=== PATIENT | male | born 1955 | race Caucasian/White ===

== ENCOUNTER 2018-07-02 16:19 | Emergency (ER) | payer OTHER, MEDICAID ==
[~2018-07-02] VITALS: Ht 154.9 cm; Wt 57.6 kg
[2018-07-02 16:32] VITALS: BP 134/71
--- NOTE | 2018-07-02 17:06 | NUR ---
PT AMBULATES TO BED 3
--- NOTE | 2018-07-02 17:19 | NUR ---
PT BIB CAREGIVER TO THE ED WITH THE CHIEF C/O CONGESTION AND COUGH XTODAY. WHITE PHLEGM. NO BLOOD IN PHLEGM. PER MANAGER CASE MANAGEMENT PT RPEORTED SOB AND DIFFICULTY BREATHING THIS MORNING. BREATHING NORMALLY AT THIS TIME. SATURATING 95% IN ROOM AIR. LUNGS WHEEZING. AFEBRILE AT THIS TIME. DENIES ANY RECENT FEVER. DENIES ANY N/V/D. STATES PAIN 0/10.
--- NOTE | 2018-07-02 17:59 | NUR ---
FLU SWAB TAKE TO THE LAB.
[2018-07-02] MEDS ORDERED: OSELTAMIVIR PHOSPHATE 75 MG CAP PO ONE (18:30)
[2018-07-02 19:15] VITALS: BP 168/86
--- NOTE | 2018-07-02 19:17 | NUR ---
Patient discharged with v/s stable. Written and verbal after care instructions given and explained to the patient and care provider. Patient alert, oriented and verbalized understanding of instructions. Wheel Chair Assisted with by caregiver. All questions addressed prior to discharge. ID band removed. Patient advised to follow up with PMD. Rx of CODEINE PHOSPHATE, TAMIFLU given. Patient educated on indication of medication including possible reaction and side effects. Opportunity to ask questions provided and answered.
== END 2018-07-02 19:17 | disposition home or self-care (01) ==
LOC: MED 16:19
DX: J10.1 Influenza due to other identified influenza virus with other respiratory manifestations (principal); J45.909 Unspecified asthma, uncomplicated; I10 Essential (primary) hypertension; K21.9 Gastro-esophageal reflux disease without esophagitis; E78.5 Hyperlipidemia, unspecified; N40.0 Benign prostatic hyperplasia without lower urinary tract symptoms
CPT/HCPCS: 71045; 87804; 99284; Q0092

== ENCOUNTER 2018-12-17 19:13 | Inpatient (IN) | payer OTHER, MEDICAID ==
[~2018-12-17] VITALS: Ht 154.9 cm; Wt 54.0 kg
--- NOTE | 2018-12-17 02:00 | NUR ---
PT WAS TURNED AND REPOSITIONED, 22G IN R HAND FELL OUT. NEW IV SITE ON RIGHT F/A 24G RUNNING N/S AT 100MLS/HR.
[2018-12-17 20:00] VITALS: BP 123/70
--- NOTE | 2018-12-17 20:35 | NUR ---
TO BED # 03 VIA WHEELCHAIR
--- NOTE | 2018-12-17 20:47 | NUR ---
63 Y/O MALE PRESENTS TO ED, C/O OF RECTAL BLEEDING. BUSINESS PROJECT MANAGER AT BEDSIDE STATES, BLEEDING STARTED AT 6PM TODAY. UNABLE TO CONFIRM COLOR AND AMOUNT OF BLOOD. BUSINESS PROJECT MANAGER STATES PT HAS BEEN TAKING A LAXATIVE FOR THE PAST 6 DAYS AND HAS BEEN HAVING DIARRHEA SINCE THEN. PT VSS. ERMD AWARE. WILL CONTINUE TO MONITOR.
[2018-12-17] MEDS ORDERED: NACL 0.9% 1,000 ML IV SCH (21:23)
[2018-12-17 21:52] LABS: BASOPHILS % (AUTO) 0.3 % (0.0-2.0); EOSINOPHILS # (AUTO) 0.6 K/uL (0-0.4); EOSINOPHILS % (AUTO) 6.7 % (0.0-4.0); HEMATOCRIT 41.8 % (36-52); HEMOGLOBIN 13.7 g/dL (12.0-18.0); LYMPHOCYTES # (AUTO) 1.6 K/uL (2.0-11.5); LYMPHOCYTES % (AUTO) 19.1 % (20.5-51.1); MEAN CORPUSCULAR HEMOGLOBIN 28 pg (27-31); MEAN CORPUSCULAR HGB CONC 33 g/dL (33-37); MEAN CORPUSCULAR VOLUME 86.1 fL (80-94); MONOCYTES # (AUTO) 0.6 K/uL (0.8-1.0); MONOCYTES % (AUTO) 7.2 % (1.7-9.3); NEUTROPHILS # (AUTO) 5.8 K/uL (1.8-7.7); NEUTROPHILS % (AUTO) 66.7 % (42.2-75.2); PLATELET COUNT (AUTO) 175 K/uL (140-450); RED BLOOD CELL COUNT(AUTO) 4.85 MIL/uL (4.20-6.10); WHITE BLOOD COUNT (AUTO) 8.6 K/uL (4.8-10.8)
[2018-12-17 22:07] LABS: PROTHROMBIN TIME 10.4 secs (10.8-13.4)
[2018-12-17 22:14] LABS: ANION GAP 11.9 (8-16); CARBON DIOXIDE 30.6 mmol/L (21-32); CREATININE 0.7 mg/dL (0.7-1.3); POTASSIUM 4.5 mmol/L (3.5-5.1)
[2018-12-17 22:21] LABS: ALBUMIN 3.5 g/dL (3.4-5.0); TOTAL BILIRUBIN 0.3 mg/dL (0.0-1.0)
--- NOTE | 2018-12-17 22:28 | NUR ---
Dr. Burnette examining patient.
[2018-12-17] MEDS ORDERED: HYDROcodone/APAP 7.5/325 MG 1 TAB PO PRN (22:45)
[2018-12-17] MEDS ORDERED: ONDANSETRON 4 MG/2 ML VIAL IM/IVP PRN (22:45)
[2018-12-17] MEDS ORDERED: ACETAMINOPHEN 325 MG TAB PO PRN (22:45)
[2018-12-17] MEDS ORDERED: DOCUSATE SODIUM 100 MG GELCAP PO PRN (22:45)
--- NOTE | 2018-12-17 23:45 | NUR ---
PT ADMITTED TO [facility], RM 124B. TRANSFERRED PT VIA [facility]. REPORT GIVEN TO JUAN PABLO SMITH. PT CARE TRASNFERRED TO RECEIVING RN.
[2018-12-18] VITALS: BP 116/57
--- NOTE | 2018-12-18 | NUR ---
PT ARRIVE VIA GURNEY AND TRANSFERRED TO 124 BED A. PT IS AOX3 , SKIN INTACT. PT HAS BILATERAL CONTRACTIONS AND IS A PARAPLEGIC. PT IS NPO FOR NOW BUT DRINKS THICKEN FLUIDS. PT ALSO HAS HX SLEEP APNEA AND ASTHMA. REPORT RECEIVED FORMER STAFF AT BEDSIDE. V/S FOLLOWS T 97.5 P 80 R 18 B/P 116/57 -02 945 WITH 2LITERS VIA N/C.
[2018-12-18] MEDS ORDERED: DEXTROSE 50% 50 ML SYR IVP PRN (00:10)
[2018-12-18] MEDS ORDERED: PHEN1SUP5 RC (00:31)
[2018-12-18] MEDS ORDERED: ASPI-1718 PO (00:32)
[2018-12-18] MEDS ORDERED: RISP0.5T3 PO (00:32)
[2018-12-18] MEDS ORDERED: BENZ-248 PO (00:32)
[2018-12-18] MEDS ORDERED: FERR325E14 PO (00:32)
[2018-12-18] MEDS ORDERED: [UNRECOGNIZED DRUG - CODE] NS (00:32)
[2018-12-18] MEDS ORDERED: FLUT1BLS11 IH (00:32)
[2018-12-18] MEDS ORDERED: PUL.5N NEB (00:32)
[2018-12-18] MEDS ORDERED: LACT10SO1 PO (00:32)
[2018-12-18] MEDS ORDERED: [UNRECOGNIZED DRUG - CODE] PO (00:32)
[2018-12-18] MEDS ORDERED: FURO20TA8 PO (00:32)
[2018-12-18] MEDS ORDERED: METF500T PO (00:32)
[2018-12-18] MEDS ORDERED: CARV3.122 PO (00:32)
[2018-12-18] MEDS ORDERED: DONE10TA10 PO (00:32)
[2018-12-18] MEDS ORDERED: TAMS0.4C96 PO (00:32)
[2018-12-18] MEDS ORDERED: GABA300C PO (00:32)
[2018-12-18] MEDS ORDERED: LISI2.5T12 PO (00:32)
[2018-12-18] MEDS ORDERED: ATOR20TA PO (00:32)
[2018-12-18] MEDS ORDERED: RIVA20TA PO (00:32)
[2018-12-18] MEDS ORDERED: PANT40EC PO (00:32)
[2018-12-18] MEDS ORDERED: MODA100T13 PO (00:32)
[2018-12-18 00:34] LABS: AMYLASE 44 U/L (25-115); CHOL/HDL RATIO 5.3 (1-4.5); HDL CHOLESTEROL 33 mg/dL (40-60); LDL (CALC) 102 mg/dL (60-100); LIPASE 181 U/L (73-393); MAGNESIUM 2.3 mg/dL (1.8-2.4); PHOSPHORUS 3.3 mg/dL (2.5-4.9); THYROID STIMULATING HORMONE 3.97 uIU/mL (0.34-3.74); TRIGLYCERIDES 205 mg/dL (30-150)
--- NOTE | 2018-12-18 01:15 | NUR ---
PETTY FROM LAB CALLED LACTIC ACID AT 4.2 RESIDENT MAGDALENA MADE AWARE.
[2018-12-18] MEDS ORDERED: cefTRIAXone 1,000 MG VIAL ONE (02:00)
[2018-12-18] MEDS: MORPHINE SULFATE 2 MG/ML SYR IVP PRN (02:12)
--- NOTE | 2018-12-18 02:15 | NUR ---
PT C/O SEVERE BACK PAIN, PT WAS REPOSITIONED AND GIVEN MORPHINE IVP.
[2018-12-18] MEDS ORDERED: ALBUTEROL SULFATE/IPRATROPIU 3 ML SOL IH PRN (02:20)
[2018-12-18] MEDS: DEXT 5% / NACL 0.45% 1,000 ML IV SCH ×2 (02:27→12:10)
--- NOTE | 2018-12-18 03:15 | NUR ---
LAST LACTIC ACID RETEST IS 3.5 TRENDING DOWN.
[2018-12-18 04:00] VITALS: BP 100/46
--- NOTE | 2018-12-18 05:33 | NUR ---
PT HAS A LARGE BLOOD LOOSE STOOL WITH RODRIGUE BLOOD IN STOOL STOOL COLECTED FOR C DIFF AND BLOOD OCCULT AND SENT TO LAB.
--- NOTE | 2018-12-18 05:50 | NUR ---
PT IN BED, FLAGYL HUNG AND IS RUNNING ORDERED. FINGERSTICK IS 124, NO COVERAGE NEEDED. ALL FALLS PRECAUTIONS IN PLACE.
[2018-12-18] MEDS: metroNIDAZOLE 500 MG/NS PREMIX 100 ML IV SCH ×2 (06:19→12:36)
[2018-12-18] MEDS: BLOOD GLUCOSE MONITORING 1 DEV DEV FS SCH ×4 (06:24→21:32)
--- NOTE | 2018-12-18 07:15 | NUR ---
PT RECEIVED FROM NIGHT RNJUAN PABLO. PT SLEEPING IN BED, AROUSAL TO VERBAL COMMAND. 24 G IV TO R FOREARM WITH NS AT 100ML/HR. PT SHOWS NO SIGNS OF ACUTE DISTRESS AT THIS TIME. WILL CONTINUE TO ASSESS FOR CHANGES IN CONDITION.
[2018-12-18] MEDS: BUDESONIDE 0.5 MG/2 ML NEBU INH SCH ×2 (07:42→21:02)
[2018-12-18] MEDS: CARVEDILOL 3.125 MG TAB PO SCH ×2 (07:43→16:59)
[2018-12-18 07:59] LABS: BASOPHILS % (AUTO) 0.1 % (0.0-2.0); EOSINOPHILS # (AUTO) 0.3 K/uL (0-0.4); EOSINOPHILS % (AUTO) 4.3 % (0.0-4.0); HEMATOCRIT 33.4 % (36-52); HEMOGLOBIN 10.9 g/dL (12.0-18.0); LYMPHOCYTES # (AUTO) 1.4 K/uL (2.0-11.5); LYMPHOCYTES % (AUTO) 19.3 % (20.5-51.1); MEAN CORPUSCULAR HEMOGLOBIN 28 pg (27-31); MEAN CORPUSCULAR HGB CONC 33 g/dL (33-37); MEAN CORPUSCULAR VOLUME 86.5 fL (80-94); MONOCYTES # (AUTO) 0.5 K/uL (0.8-1.0); MONOCYTES % (AUTO) 7.3 % (1.7-9.3); NEUTROPHILS # (AUTO) 5.2 K/uL (1.8-7.7); PLATELET COUNT (AUTO) 145 K/uL (140-450); RED BLOOD CELL COUNT(AUTO) 3.86 MIL/uL (4.20-6.10); RED CELL DISTRIBUTION WIDTH 15.3 % (11.6-13.7); WHITE BLOOD COUNT (AUTO) 7.5 K/uL (4.8-10.8)
[2018-12-18 08:00] VITALS: BP 121/42
--- NOTE | 2018-12-18 08:36 | NUR ---
PATIENT HAS BEEN SCREENED AND CATEGORIZED HIGH NUTRITION RISK. PATIENT WILL BE SEEN WITHIN 1-2 DAYS OF ADMISSION. 12/18/18-12/19/[address]
[2018-12-18] MEDS: CALCITONIN (SALMON) 200 IU/ACTUATION SPR 3.7ML BTL NS SCH (09:00)
[2018-12-18] MEDS ORDERED: RANITIDINE HCL 50 MG PO SCH (09:00)
[2018-12-18] MEDS ORDERED: PANTOPRAZOLE 40 MG TABEC PO SCH (09:00)
[2018-12-18] MEDS ORDERED: MODAFINIL 100 MG PO SCH (09:00)
[2018-12-18] MEDS ORDERED: FUROSEMIDE PO SCH (09:00)
[2018-12-18] MEDS: BENZTROPINE 1 MG TAB PO SCH ×2 (09:40→21:33)
[2018-12-18] MEDS: DONEPEZIL 10 MG TAB PO SCH (09:41)
[2018-12-18] MEDS: FUROSEMIDE 20 MG TAB PO SCH (09:41)
[2018-12-18] MEDS: metFORMIN 500 MG TAB PO SCH (09:41)
[2018-12-18] MEDS: FAMOTIDINE 20 MG TAB PO SCH (09:41)
[2018-12-18] MEDS: risperiDONE 1 MG TAB PO SCH ×2 (09:42→21:33)
[2018-12-18] MEDS: LISINOPRIL 5 MG TAB PO SCH (09:42)
[2018-12-18] MEDS: GABAPENTIN 300 MG CAP PO SCH ×3 (09:42→17:05)
[2018-12-18] MEDS: FERROUS SULFATE 325 MG TABEC PO SCH (09:42)
[2018-12-18] MEDS: LACTOBACILLUS RHAMNOSUS GG 1 EACH CAP PO SCH (09:42)
[2018-12-18] MEDS: PANTOPRAZOLE 40 MG INJ VIAL IVP SCH ×2 (09:43→21:34)
[2018-12-18] MEDS: SHARK OIL/PHENYLEPHRINE 60 GM TUBE TP SCH (09:43)
[2018-12-18] MEDS: TAMSULOSIN 0.4 MG CAP PO SCH (09:49)
--- NOTE | 2018-12-18 10:43 | NUR ---
REANNA FROM RADIOLOGY AT BEDSIDE WILL TAKE PT FOR CT OF ABDOMEN AND PELVIS WITHOUT CONTRAST. PT SALINE LOCKED FOR TRANSPORT.
[2018-12-18 10:56] LABS: POTASSIUM 4.8 mmol/L (3.5-5.1)
[2018-12-18 10:57] LABS: ANION GAP 10.9 (8-16); CARBON DIOXIDE 28.9 mmol/L (21-32); CREATININE 0.6 mg/dL (0.7-1.3)
[2018-12-18 11:00] LABS: MAGNESIUM 2.4 mg/dL (1.8-2.4); PHOSPHORUS 3.3 mg/dL (2.5-4.9)
--- NOTE | 2018-12-18 11:00 | NUR ---
PT BACK FROM CT. NO SIGNS OF ACUTE DISTRESS AT THIS TIME. WILL CONTINUE TO ASSESS FOR CHANGES IN CONDITION.
--- NOTE | 2018-12-18 11:53 | NUR ---
NAGA FROM OT AT BEDSIDE CONDUCTING A SWALLOW EVALUATION. PT TOLERATING PROCEDURE WELL. NO SIGNS OF ACUTE DISTRESS AT THIS TIME. WILL CONTINUE TO ASSESS FOR CHANGES IN CONDITION.
[2018-12-18 12:00] VITALS: BP 110/68
--- NOTE | 2018-12-18 12:10 | NUR ---
PT VOMITED 250 ML POST SWALLOW EVALUATION. LINENS WILL BE CHANGED PRIOR TO MEDS DUE AT 1300.
--- NOTE | 2018-12-18 12:18 | NUR ---
*S.T. Bedside swallow eval completed* See report for details. Pt presents w/ adequate oropharyngeal swallow function for textures trialed, based on pt's reported baseline diet of puree and thickened liquids. Pt demo'd no overt s/s aspiration w/ swallows of applesauce and straw sips of both nectar thick and honey thick liquids. Recommend: 1) Advance to pureed diet, nectar thick liquids. Straws okay. Once cleared by GI. 2) P.O. meds whole one at a time w/ thickened liquids; crush P.O. meds if pt lethargic. 3) 1:1 feeder w/ aspiration precautions. Defer to medicine team re: dietary restrictions. No further tx indicated at this time as pt appears to be functioning at his reported baseline level. DC to [facility]. Endorsed to SARAH Galindo. Time [id number]
--- NOTE | 2018-12-18 13:58 | NUR ---
12/18/18 RD INITIAL ASSESSMENT COMPLETED PLEASE REFER TO NUTRITION ASSESSMENT UNDER CARE ACTIVITY FOR ESTIMATED NUTRITIONAL NEEDS. 1. CONTINUE NPO MEDICALLY NECESSARY 2. WHEN PATIENT IS MEDICALLY STABLE CONSIDER ADVANCING DIET TO PUREE WITH NECTAR THICK LIQUIDS 3. RD TO FOLLOW-UP 2-3 DAYS, HIGH RISK MARIA DEL CARMEN DELGADO, BERNIE
--- NOTE | 2018-12-18 14:05 | NUR ---
Full Stack Java Developer Note: I called [facility] multiple times to obtain information about patient for assessment, no answer, unable to leave message.
--- NOTE | 2018-12-18 15:00 | NUR ---
PT IV TO L FOREARM LEAKING. IV REMOVED AND REPLACED BY CHARGE NURSE. PT HAS NEW 24 G IV TO L HAND.
--- NOTE | 2018-12-18 15:15 | NUR ---
BLADDER SCAN DONE BECAUSE CT SHOWED DISTENDED BLADDER. BLADDER SCAN SHOWED 162 ML. NO ACTION NEEDED FOR LESS THAN 400ML. WILL CONTINUE TO MONITOR FOR URINE OUTPUT AND REPEAT BLADDER SCAN NEEDED.
[2018-12-18 16:00] VITALS: BP 117/58
--- NOTE | 2018-12-18 17:00 | NUR ---
PT RECEIVED ORDERED MEDICATIONS. PT TOLERATED SWALLOWING GABAPENTIN AND COREG WITH THICKENED LIQUIDS, NO COUGHING OR WET VOICE POST MEDICATION ADMINISTRATION. PT AAOX4. WILL CONTINUE TO ASSESS FOR CHANGES IN CONDITION. NO SIGNS OF ACUTE DISTRESS AT THIS TIME.
--- NOTE | 2018-12-18 18:15 | NUR ---
PT IN BED. SLEEPING BUT AROUSAL TO VERBAL STIMULUS. WILL CONTINUE TO ASSESS FOR CHANGES IN CONDITION. BREATHING EVEN AND UNLABORED. NO SIGNS OF ACUTE STRESS AT THIS TIME.
--- NOTE | 2018-12-18 19:19 | NUR ---
PT ENDORSED TO NIGHT RNAMBAR. PT IN BED, AAOX4. PT SALINE LOCK TO L HAND. PT SHOWS NO SIGNS OF ACUTE DISTRESS AT THIS TIME.
--- NOTE | 2018-12-18 19:24 | NUR ---
RECEIVED FROM AM RN IN BED . TOTAL CARE. QUADRIPLEGIC. HX. CERBRAL PALSY. DX. GI BLEED. ABLE TO VERBALIZE SIMPLE NEEDS. NO SOB. ON 02 AT 2LPM/NC. IVF SITE TO LEFT HAND #24. HEPLOCKED. TELEMETRY MONITORING. NEEDS WILL BE ANTICIPATED AND WILL BE MET. CALL LIGHT WITH IN REACH.
[2018-12-18 19:35] VITALS: BP 112/66
[2018-12-18] MEDS: ATORVASTATIN 20 MG TAB PO SCH (21:33)
--- NOTE | 2018-12-18 22:00 | NUR ---
STILL AWAKE AND WATCHING TV. ABLE TO VERBALIZE SIMPLE NEEDS IN A SLURRED SLOW SENTENCE. FED BY LUGGAGE REPAIRER ARTURO SINGLETON WITH PUDDING. TOLERATED WELL 2130 P.O. MEDICATIONS /CRUSHED AND MIXED WITH APPLE SAUCE.
[2018-12-19 00:16] VITALS: BP 117/36
--- NOTE | 2018-12-19 00:30 | NUR ---
PT. SLEEPING WELL. NOTICED HARD TO WAKE UP.HX. SLEEP APNEA. O2 SAT GOES DOWN TO 89 TO 94 % WITH 02 AT 2LPM/NC IN PLACE. INFORMED RESPIRATORY THERAPIST ABOUT IT AND SHE SAID SHE WILL COME AND CHECK ON HIM. PRESENTLY 02 SAT IS 93 %. NEEDS WILL BE ANTICIPATED AND MET. TOTAL CARE. TURNED Q 2H. PILLOW SUPPORT TO PRESSURE AREAS.
[2018-12-19 00:59] VITALS: BP 101/44
--- NOTE | 2018-12-19 02:30 | NUR ---
SLEEPING WELL. TURNED TO SIDES Q 2H. PILLOW SUPPORT TO PRESSURE AREAS. BED ALARM ON. CALL LIGHT WITH IN REACH. NEEDS ANTICIPATED.
--- NOTE | 2018-12-19 04:00 | NUR ---
PT. NEEDS ANTICIPATED AND MET. CLEANED BY CNAS AND TURNED TO SIDES Q 2H. TOTAL CARE. ABLE TO WAKE UP AND VERBALIZE SIMPLE NEEDS. NO SOB. ON AT 2 LPM/NC. RESPIRATORY THERAPIST IN HERE FREQUENTLY TO CHECK ON PT.
[2018-12-19 04:34] VITALS: BP 110/69
[2018-12-19] MEDS: BLOOD GLUCOSE MONITORING 1 DEV DEV FS SCH ×4 (05:01→20:33)
[2018-12-19 06:06] LABS: BASOPHILS % (AUTO) 0.1 % (0.0-2.0); EOSINOPHILS # (AUTO) 0.3 K/uL (0-0.4); HEMATOCRIT 30.4 % (36-52); HEMOGLOBIN 9.9 g/dL (12.0-18.0); LYMPHOCYTES # (AUTO) 1.1 K/uL (2.0-11.5); LYMPHOCYTES % (AUTO) 16.6 % (20.5-51.1); MEAN CORPUSCULAR HEMOGLOBIN 29 pg (27-31); MEAN CORPUSCULAR HGB CONC 33 g/dL (33-37); MEAN CORPUSCULAR VOLUME 87.2 fL (80-94); MONOCYTES # (AUTO) 0.5 K/uL (0.8-1.0); MONOCYTES % (AUTO) 8.5 % (1.7-9.3); NEUTROPHILS # (AUTO) 4.4 K/uL (1.8-7.7); NEUTROPHILS % (AUTO) 69.8 % (42.2-75.2); PLATELET COUNT (AUTO) 129 K/uL (140-450); RED BLOOD CELL COUNT(AUTO) 3.49 MIL/uL (4.20-6.10); WHITE BLOOD COUNT (AUTO) 6.3 K/uL (4.8-10.8)
--- NOTE | 2018-12-19 06:15 | NUR ---
NEEDS ANTICIPATED AND MET. BLOOD SUGAR CHECK PER FINGERSTICK 148. NO INSULIN COVERAGE ADMINISTERED. PT. ABLE TO VERBALIZE SIMPLE NEEDS. WAKES UP WHEN TURNED AND ABLE TO VERBALIZE WITH CNAS AND ME. TELEMETRY MONITORING. NSR WITH BBB AND ST SEGMENT DEPRESSION.
[2018-12-19 07:05] LABS: CARBON DIOXIDE 32.3 mmol/L (21-32); CREATININE 0.6 mg/dL (0.7-1.3); POTASSIUM 4.3 mmol/L (3.5-5.1)
[2018-12-19 07:10] LABS: MAGNESIUM 2.3 mg/dL (1.8-2.4); PHOSPHORUS 3.9 mg/dL (2.5-4.9)
--- NOTE | 2018-12-19 07:30 | NUR ---
RECEIVED PT AAOX3. NO SOB NOTED, ON 2LPM OXYGEN VIA NASAL CANNULA WITH SATS AT 98%. NO C/O PAIN AT THIS TIME. IV TO LT HAND PATENT AND INTACT. CHEST DIMINISHED AIR ENTRY TO THE BASES. ABDOMEN SOFT, BOWEL SOUNDS PRESENT. WITH CONTRACTED BUE AND BLE, WILL REPOSITION PT Q2H. BED ROSALIE LOW POSITION WITH 3 SIDE RAILS RAISED UP, BED ALARM ON. INSTRUCTED PT TO CALL FOR ASSISTANCE. CALL LIGHT WITHIN REACH, PT VERBALIZED UNDERSTANDING.
[2018-12-19 08:00] VITALS: BP 127/72
[2018-12-19] MEDS: CARVEDILOL 3.125 MG TAB PO SCH ×2 (08:00→17:39)
[2018-12-19 08:07] LABS: T4 (THYROXINE) 8.4 ug/dL (4.5-12.0)
[2018-12-19] MEDS: metFORMIN 500 MG TAB PO SCH (09:00)
[2018-12-19] MEDS: FERROUS SULFATE 325 MG TABEC PO SCH (09:00)
[2018-12-19] MEDS: CALCITONIN (SALMON) 200 IU/ACTUATION SPR 3.7ML BTL NS SCH (09:00)
--- NOTE | 2018-12-19 09:00 | NUR ---
PT VOIDING INCONTINENTLY, CLEANSED PERIANAL AREA THEN PAT DRY. SKIN INTACT. REPOSITIONED.
[2018-12-19] MEDS: FAMOTIDINE 20 MG TAB PO SCH (09:45)
[2018-12-19] MEDS: PANTOPRAZOLE 40 MG INJ VIAL IVP SCH ×2 (09:45→20:13)
[2018-12-19] MEDS: LACTOBACILLUS RHAMNOSUS GG 1 EACH CAP PO SCH (09:45)
[2018-12-19] MEDS: LISINOPRIL 5 MG TAB PO SCH (09:46)
[2018-12-19] MEDS: GABAPENTIN 300 MG CAP PO SCH ×2 (09:47→13:43)
[2018-12-19] MEDS: risperiDONE 1 MG TAB PO SCH ×2 (09:47→20:19)
[2018-12-19] MEDS: BENZTROPINE 1 MG TAB PO SCH (09:47)
[2018-12-19] MEDS: FUROSEMIDE 20 MG TAB PO SCH (09:47)
[2018-12-19] MEDS: DONEPEZIL 10 MG TAB PO SCH (09:47)
[2018-12-19] MEDS: TAMSULOSIN 0.4 MG CAP PO SCH (09:48)
--- NOTE | 2018-12-19 10:00 | NUR ---
pt resting. no sob noted. no complaints made. pt repositioned every 2 hrs.
[2018-12-19] MEDS: SHARK OIL/PHENYLEPHRINE 60 GM TUBE TP SCH (10:08)
[2018-12-19] MEDS: BUDESONIDE 0.5 MG/2 ML NEBU INH SCH ×2 (10:38→20:30)
[2018-12-19 12:00] VITALS: BP 116/57
--- NOTE | 2018-12-19 12:00 | NUR ---
PT AWAKE. NO SOB NOTED. NO SIGNS OF PAIN. PT KEPT ON NPO EXCEPT MEDS.
--- NOTE | 2018-12-19 14:00 | NUR ---
ECHO ON GOING AT THE BEDSIDE.
[2018-12-19] MEDS ORDERED: SENNA 8.6 MG TAB PO SCH (15:01)
--- NOTE | 2018-12-19 15:30 | NUR ---
DR. AGARWAL RECOMMENDED BLADDER SCAN. PT IS VOIDING INCONTINENTLY. POST VOID RESIDUAL [address] STEPHENS, STATED NOT TO STRAIGHT CATH OR NOT TO PUT MENDEZ CATH ON PT RECOMMENDED BY DR. WASHBURN.
--- NOTE | 2018-12-19 15:39 | NUR ---
AT 1500 HRS: PT SEEN BY DR. AGARWAL. NEW ORDERS GIVEN. CALLED PT'S DIRECTOR OF QUALITY IMPROVEMENT HENRIK(#[phone]) TO INFORM HER REGARDING EGD AND COLONOSCOPY ORDERS. HENRIK STATED THAT IT IS THE [facility] EDUCATION MANAGERS TO SIGN THE CONSENT NOT PT'S FAMILY. PER HENRIK, PT'S CARE WORKER IS TIARRA TEL# [phone]. DR LIRA AND DR. NOE LEFT A MESSAGE TO TIARRA'S VOICEMAIL.
[2018-12-19 17:00] VITALS: BP 117/58
--- NOTE | 2018-12-19 17:24 | NUR ---
CONSENT FAXED TO [facility] ( [facility]) [facility] FAX#[phone]. CONSENT SIGNED BY GALILEA ESCALERA (SAMPLER AND TEST PREPARER). CONSENT ATTACHED TO PT'S CHART. DR. STEPHENS NOTIFIED.
[2018-12-19] MEDS: LACTULOSE 20 GM/30 ML UDC PO SCH ×2 (17:37→20:13)
--- NOTE | 2018-12-19 18:05 | NUR ---
PT ABLE TO TOLERATED CLEAR LIQUID DIET WITH THICKENED FLUIDS. ON ASPIRATION PRECAUTIONS.
--- NOTE | 2018-12-19 18:51 | NUR ---
PT RESTING. NO SOB NOTED. NO COMPLAINTS MADE. WILL ENDORSE TO NEXT SHIFT NURSE FOR CONTINUITY OF CARE.
--- NOTE | 2018-12-19 19:30 | NUR ---
Received endorsement from AM shift RN; Patient A/Ox3, able to make needs known, bedbound. No SOB or distress noted, on O2 2LPM via nasal cannula. IV site on left hand, 24 gauge, saline locked. Skin intact. Bed in the lowest position, call light within reach. Initial assessment done. Will continue to monitor.
[2018-12-19] MEDS: guaiFENesin 20 MG/ML UDC PO PRN (20:15)
[2018-12-19] MEDS: SENNA 8.6 MG TAB PO SCH (20:16)
[2018-12-19] MEDS: ATORVASTATIN 20 MG TAB PO SCH (20:18)
[2018-12-19] MEDS: SUPREP BOWEL PREP KIT 354 ML SOLN.RECON PO SCH (20:21)
[2018-12-19] MEDS: INSULIN LISPRO SLIDING SCALE 100 UNITS/ML VIAL SUBQ PRN (20:36)
--- NOTE | 2018-12-19 21:55 | NUR ---
Due meds given, tolerated well.
--- NOTE | 2018-12-19 22:20 | NUR ---
Patient noted with large, brown, semi-liquid BM. Patient cleaned, chux changed.
--- NOTE | 2018-12-19 23:00 | NUR ---
Vitals taken, no distress noted. Patient noted with large, brown, liquid BM. Patient cleaned, chux and linens changed. Tolerated well.
[2018-12-20] VITALS: BP 105/66
--- NOTE | 2018-12-20 01:19 | NUR ---
Rounds done; patient asleep, eyes closed, visible chest rise and fall noted.
--- NOTE | 2018-12-20 04:00 | NUR ---
Informed Dr. Nicole patients BM still not clear at this time.
--- NOTE | 2018-12-20 04:50 | NUR ---
Patient noted with medium BM, liquid, brown, not clear. Patient cleaned, chux and linens changed.
[2018-12-20] MEDS: BLOOD GLUCOSE MONITORING 1 DEV DEV FS SCH ×4 (05:15→21:14)
--- NOTE | 2018-12-20 06:14 | NUR ---
Vitals stable, due meds given. Will endorse to AM shift RN for continuity of care.
--- NOTE | 2018-12-20 07:15 | NUR ---
RECEIVED REPORT FROM NIGHT NURSE. PATIENT IN NO DISTRESS AAO X 3. SKIN WARM, DRY, INTACT. REPOSITIONED UPON REQUEST. NO COMPLAINTS OF PAIN. REVIEWED PLAN OF CARE. REINFORCEMENT NEEDED. CALL CASIANO WITHIN REACH. SAFETY PRECAUTIONS IN PLACE. ALL NEEDS MET AT THIS TIME. WILL CONTINUE TO MONITOR.
[2018-12-20 08:00] VITALS: BP 126/67
[2018-12-20] MEDS: BUDESONIDE 0.5 MG/2 ML NEBU INH SCH ×2 (08:36→19:45)
--- NOTE | 2018-12-20 08:40 | NUR ---
GAVE REPORT TO SARAH NGO FOR CONTINUITY OF CARE. PATIENT IN STABLE CONDITION.
--- NOTE | 2018-12-20 08:41 | NUR ---
RECEIVED REPORT FROM SARAH EARLY. PATIENT RESTING IN BED, NO SIGNS FO DISTRESS ON R2L O2 VIA NC. RESPIRATORY THERAPIST AT BEDSIDE TO PROVIDE BREATHING TREATMENT. PATINE VITALS ARE STABLE. PATIENT IS CURRENTLY SALINE LOCKED WITH 24 GAUGE IV CATHETER IN LEFT HAND. BED IS LOW, CALL LIGHT IS IN REACH. WILL CONTINUE TO MONITOR.
[2018-12-20] MEDS: SHARK OIL/PHENYLEPHRINE 60 GM TUBE TP SCH (09:00)
[2018-12-20] MEDS: MORPHINE SULFATE 2 MG/ML SYR IVP PRN ×2 (09:21→17:12)
[2018-12-20] MEDS: CARVEDILOL 3.125 MG TAB PO SCH ×2 (09:22→17:00)
[2018-12-20] MEDS: LACTULOSE 20 GM/30 ML UDC PO SCH ×2 (09:35→12:43)
[2018-12-20] MEDS: LACTOBACILLUS RHAMNOSUS GG 1 EACH CAP PO SCH (09:36)
[2018-12-20] MEDS: PANTOPRAZOLE 40 MG INJ VIAL IVP SCH (09:36)
[2018-12-20] MEDS: FAMOTIDINE 20 MG TAB PO SCH (09:36)
[2018-12-20] MEDS: SENNA 8.6 MG TAB PO SCH (09:37)
[2018-12-20] MEDS: risperiDONE 1 MG TAB PO SCH ×2 (09:37→21:09)
[2018-12-20] MEDS: FUROSEMIDE 20 MG TAB PO SCH (09:37)
[2018-12-20] MEDS: TAMSULOSIN 0.4 MG CAP PO SCH (09:37)
[2018-12-20] MEDS: LISINOPRIL 5 MG TAB PO SCH (09:37)
[2018-12-20] MEDS: CALCITONIN (SALMON) 200 IU/ACTUATION SPR 3.7ML BTL NS SCH (09:38)
[2018-12-20] MEDS: DONEPEZIL 10 MG TAB PO SCH (09:38)
[2018-12-20] MEDS: metFORMIN 500 MG TAB PO SCH (09:38)
[2018-12-20] MEDS: SUPREP BOWEL PREP KIT 354 ML SOLN.RECON PO SCH (09:39)
--- NOTE | 2018-12-20 09:45 | NUR ---
ADMINISTERED SCHEDULED MEDICATIONS. CLEANED AND REPOSITIONED PATIENT. PATENT SHOWS NO SIGNS OF DISTRESS ON 2L O2 VIA NC. IV IS FLUSHING WELL. BED IS LOW, CALL LIGHT IS IN REACH. PATIENT ABLE TO MAKE NEEDS KNOWN. WILL CONTINUE TO MONITOR.
[2018-12-20 10:13] LABS: BASOPHILS % (AUTO) 0.1 % (0.0-2.0); EOSINOPHILS # (AUTO) 0.2 K/uL (0-0.4); EOSINOPHILS % (AUTO) 2.8 % (0.0-4.0); HEMATOCRIT 32.9 % (36-52); HEMOGLOBIN 10.8 g/dL (12.0-18.0); LYMPHOCYTES # (AUTO) 0.8 K/uL (2.0-11.5); LYMPHOCYTES % (AUTO) 13.5 % (20.5-51.1); MEAN CORPUSCULAR HEMOGLOBIN 28 pg (27-31); MEAN CORPUSCULAR HGB CONC 33 g/dL (33-37); MEAN CORPUSCULAR VOLUME 86.5 fL (80-94); MONOCYTES # (AUTO) 0.5 K/uL (0.8-1.0); MONOCYTES % (AUTO) 7.9 % (1.7-9.3); NEUTROPHILS # (AUTO) 4.5 K/uL (1.8-7.7); NEUTROPHILS % (AUTO) 75.7 % (42.2-75.2); PLATELET COUNT (AUTO) 154 K/uL (140-450); RED BLOOD CELL COUNT(AUTO) 3.81 MIL/uL (4.20-6.10); RED CELL DISTRIBUTION WIDTH 15.1 % (11.6-13.7); WHITE BLOOD COUNT (AUTO) 5.9 K/uL (4.8-10.8)
--- NOTE | 2018-12-20 11:30 | NUR ---
VITALS ARE STABLE. GLUCOSE IS SLIGHTLY ELEVATED AT 171. WILL NOT COVER UNLESS PATIENT IS ABLE TO EAT. PATIENT CURRENTLY NPO PENDING POSSIBLE PROCEDURE. BED IS LOW, CALL LIGHT IS IN REACH. PATIENT IS HUNGRY NAD WANTS TO EAT. EDUCATED PATIENT THAT HE IS WAITING FOR A COLONOSCOPY AND EGD AND THAT HE CANNOT EAT UNTIL AFTER THE PROCEDURE. PATIENT DOES NOT VERBALIZE UNDERSTANDING. REPEATED EDUCATION, BUT HE CONTINUES TO STATE HE NEEDS TO EAT. WILL FOLLOW UP WITH DOCTOR TO ENSURE PATIENT IS NPO FOR MINIMAL AMOUNT OF TIME.
[2018-12-20 11:47] LABS: APPEARANCE,URINE CLOUDY (CLEAR); BILIRUBIN,URINE NEGATIVE (NEGATIVE); BLOOD, URINE NEGATIVE (NEGATIVE); COLOR,URINE YELLOW (YELLOW); LEUKOCYTE ESTERASE ,URINE 2+ (NEGATIVE); NITRITE, URINE NEGATIVE (NEGATIVE); PH,URINE 5.5 (5.0-9.0); UGLUCOSE NEGATIVE (NEGATIVE)
--- NOTE | 2018-12-20 12:00 | NUR ---
SPOKE TO DOCTOR AGARWAL. PATIENT WILL NOT GET PROCEDURE TODAY. PATIENT MAY EAT.
[2018-12-20 12:01] LABS: BARBITURATE, URINE NEGATIVE ng/ml (NEG <=200); BENZODIAZEPINE, URINE NEGATIVE ng/mL (NEG <=200); CANNABINOID, URINE NEGATIVE ng/mL (NEG <=50); COCAINE, URINE NEGATIVE ng/mL (NEG <=300)
[2018-12-20 12:02] LABS: OPIATE, URINE NEGATIVE ng/mL (NEG <=2000); PHENCYCLIDINE SCREEN,URINE NEGATIVE ng/mL (NEG <=25)
[2018-12-20 12:28] LABS: MAGNESIUM 2.2 mg/dL (1.8-2.4); PHOSPHORUS 3.2 mg/dL (2.5-4.9)
[2018-12-20 12:44] LABS: RBC,URINE 0-5 /HPF (0-5)
[2018-12-20 12:45] LABS: WBC,URINE 60-80 /HPF (0-5); YEAST,URINE None Seen /HPF (None Seen)
[2018-12-20 13:26] LABS: ANION GAP 11.1 (8-16); CARBON DIOXIDE 34.2 mmol/L (21-32); CREATININE 0.6 mg/dL (0.7-1.3); POTASSIUM 3.3 mmol/L (3.5-5.1)
--- NOTE | 2018-12-20 13:30 | NUR ---
Administered 4mg Zofran IV for C/O nausea. Patient states he may just be hungry vs. nauseous. Patient has been NPO since midnight. Per doctor Tj, colonoscopy and EGD will not happen today. Patient may eat. Patient caregiver Jessica at bedside feeding patient lunch. Patient eating clear liquid diet, with nectar thickened liquids. Patient tolerating food well in upright, high-yates position. Patient requesting to be shaved and cleaned. Will accommodate after patient finishes lunch.
--- NOTE | 2018-12-20 14:03 | NUR ---
CLEANED AND REPOSITIONED PATIENT, PROVIDED SPONGE BATH, PLACED IN POSITION OF COMFORT. SHAVED FACE WITH ELECTRIC RAZOR PER PATIENT REQUEST. BED IS LOW, CALL LIGHT IS IN REACH
[2018-12-20] MEDS ORDERED: diphenhydrAMINE 50 MG/ML VIAL ONE (14:05)
[2018-12-20] MEDS ORDERED: MIDAZOLAM 2 MG/2 ML VIAL ONE (14:05)
[2018-12-20] MEDS ORDERED: fentaNYL 0.05 MG/ML VIAL ONE ×2 (14:05)
--- NOTE | 2018-12-20 14:18 | NUR ---
SCREEN FOR LOW LUZ ELENA SCALE AT RISK, CONTINUE TO FOLLOW PRESSURE ULCER PREVENTION INTERVENTIONS. -TURN AND REPOSITION PATIENT Q 2H -ASSESS AND MONITOR SKIN CONDITION DURING POSITION CHANGE -OFFLOAD BILATERAL HEELS BY PLACING PILLOWS UNDER CALVES AT ALL TIMES, UNLESS OTHERWISE CONTRAINDICATED -PRESSURE REDISTRIBUTION BY PLACING PILLOWS AND OFFLOADING SACRALCOCCYX -KEEP SKIN CLEAN AND DRY AT ALL TIMES.
[2018-12-20] MEDS ORDERED: METOCLOPRAMIDE 10 MG/2 ML INJ VIAL ONE (14:22)
--- NOTE | 2018-12-20 15:05 | NUR ---
CLEANED AND REPOSITIONED PATIENT. BED IS LOW, NO C/O PAIN AT THIS TIME. CALL LIGHT IN REACH. WILL CONTINUE TO MONITOR.
--- NOTE | 2018-12-20 15:36 | NUR ---
12/20/18 RD FOLLOW UP COMPLETED PLEASE REFER TO NUTRITION ASSESSMENT UNDER CARE ACTIVITY FOR ESTIMATED NUTRITIONAL NEEDS. 1. RECOMMEND PUREE NA2GM DIET WITH NECTAR THICK PER SPEECH THERAPIST�S RECOMMENDATIONS 2. CONTINUE TO PROVIDE ASSISTANCE WHEN FEEDING MEALS 3. RD TO FOLLOW-UP 3-5 DAYS, MODERATE RISK MARIA DEL CARMEN DELGADO, BERNIE
[2018-12-20] MEDS: ALBUTEROL SULFATE/IPRATROPIU 3 ML SOL IH PRN (15:54)
[2018-12-20 16:00] VITALS: BP 107/55
[2018-12-20] MEDS ORDERED: EPINEPHrine PFS 0.1 MG/ML SYR IVP ONE (16:06)
--- NOTE | 2018-12-20 16:45 | NUR ---
VITALS ARE STABLE, GLUCOSE IS 153. WILL COVER WITH HUMALOG ONCE TRAY IS AT BEDSIDE. REPOSITIONED PATIENT FOR COMFORT. PATIENT HAD MULTIPLE LOSS WATERY STOOLS TODAY DUE TO BOWEL PREP FOR COLONOSCOPY. DIARRHEA IS LESS FREQUENT. PATIENT IS CLEAN. WILL CONTINUE TO MONITOR CLOSELY. BED IS LOW, CALL LIGHT IS IN REACH.
[2018-12-20] MEDS ORDERED: MIDAZOLAM 2 MG/2 ML VIAL IVP ONE (17:05)
[2018-12-20] MEDS ORDERED: fentaNYL 0.05 MG/ML VIAL IVP ONE (17:05)
--- NOTE | 2018-12-20 18:00 | NUR ---
PATIENT ATE 100 % OF DINNER, PATIENT IS NOW SLEEPING. NO SIGNS OF DISTRESS ON 2L O2 NC. BED IS LOW, CALL LIGHT IN REACH, PATIENT IS CONTRACTED IN UPPER EXTREMITIES. PATIENT IN ROOM VISIBLE FROM NURSES STATION. WILL CONTINUE TO MONITOR.
[2018-12-20] MEDS: INSULIN LISPRO SLIDING SCALE 100 UNITS/ML VIAL SUBQ PRN ×2 (18:55→21:19)
--- NOTE | 2018-12-20 19:05 | NUR ---
GAVE BEDSIDE REPORT TO TURN DOWN WORKER RNFILIBERTO. ENDORSED PATIENT IN STABLE CONDITION.
--- NOTE | 2018-12-20 19:08 | NUR ---
RECEIVED PT IN STABLE CONDITION FROM AM NURSE. AWAKE,ALERT AND ORIENTED X3. ON MED SURG. WITH NO C/O ANY DISCOMFORT NOR PAIN NOTED. BEDREST. JUST REPOSITIONED FOR COMFORT. HAS IV HL ON THE LT AC G#22. CLEAR AND PATENT. BED ON LOWEST POSITION. FREQUENT ROUNDS NEEDED. SIDE RAILS UP X2. CALL LIGHT PLACED WITHIN EASY REACH. WILL CONTINUE TO MONITOR.
--- NOTE | 2018-12-20 20:00 | NUR ---
VISITOR FORM THE FACILITY CAME FROM AT BEDSIDE. PT REPOSITIONED FOR COMFORT AGAIN REQUESTED .
[2018-12-20] MEDS: ATORVASTATIN 20 MG TAB PO SCH (21:08)
--- NOTE | 2018-12-20 21:09 | NUR ---
PT ABLE TO TAKE ALL NIGHT MEDS WITH THICKENED LIQUIDS AND APPLE SAUCE. TOLERATED WELL.
--- NOTE | 2018-12-20 21:19 | NUR ---
BLOOD SUGAR WAS CHECKED RESULT 159. HUMALOG 2 UNITS SUB Q GIVEN COVERAGE. GIVEN SOME APPLE SAUCE. WILL CONTINUE TO MONITOR.
--- NOTE | 2018-12-20 22:27 | NUR ---
PT REPOSITIONED AGAIN BEFORE CPAP IS CONNECTED TO PT BY RT. WILL CONTINUE TO MONITOR.
--- NOTE | 2018-12-20 23:00 | NUR ---
PLACED PATIENT ON BIPAP 12 RATE, 28%. PATIENT RESTING WITH NO DISTRESS NOTED. VITALS STABLE. WILL CONTINUE TO MONITOR.
[2018-12-21] VITALS: BP 127/60
--- NOTE | 2018-12-21 00:30 | NUR ---
REPOSITIONED PATIENT FOR COMFORT, WILL CONTINUE TO MONITOR
--- NOTE | 2018-12-21 02:40 | NUR ---
PATIENT VOIDED, INCONTINENT OF URINE, CLEANED AND KEPT DRY, ZGUARD APPLIED TO PERINEAL AREA, REPOSITIONED PATIENT TO THE LEFT SIDE, WILL CONTINUE TO MONITOR.
--- NOTE | 2018-12-21 04:30 | NUR ---
REPOSITIONED PT FOR COMFORT. NO DISTRESS NOTED. STILL ON BIPAP MACHINE.
[2018-12-21] MEDS: BLOOD GLUCOSE MONITORING 1 DEV DEV FS SCH ×2 (06:12→11:30)
--- NOTE | 2018-12-21 06:12 | NUR ---
BLOOD SUGAR THIS AM 143. NO INSULIN COVERAGE NEEDED.
[2018-12-21] MEDS: BUDESONIDE 0.5 MG/2 ML NEBU INH SCH (06:20)
--- NOTE | 2018-12-21 06:20 | NUR ---
REC'D PT ON HARRY V60 BIPAP SETTINGS 12/ RR 12 FIO2 28% ALARMS ON AND AUDIBLE AMBU BAG IS AT HOB AND BIPAP IS PLUGGED INTO RED OUTLET, I\L TX GIVEN WITH PULMICORT 0.5MG WITH NO ADVERSE REACTION POST TX B\S ARE CLEAR BILATERALLY, PT IS WEARING LARGE FACE MASK, PT IS SLEEPING WITH NO SIGNS OF DISTRESS NOTED AT THIS TIME
--- NOTE | 2018-12-21 07:23 | NUR ---
ENDORSED PATIENT IN STABLE CONDITION TO DAY NURSE FOR CONTINUITY OF CARE.
--- NOTE | 2018-12-21 07:24 | NUR ---
RECEIVED BEDSIDE REPORT FROM VINYL FLOORING INSTALLER RNFILIBERTO. PATIENT SLEEPING ON CPAP. NO SIGNS OF DISTRESS. EVEN UNLABORED RESPIRATIONS. PATIENT IS SALINE LOCKED WITH 22 GAUGE CATHETER IN LEFT AC. BED IS LOW, CALL LIGHT IS IN REACH. WILL CONTINUE TO MONITOR.
[2018-12-21 08:00] VITALS: BP 139/55
[2018-12-21 08:23] LABS: EOSINOPHILS # (AUTO) 0.3 K/uL (0-0.4); MEAN CORPUSCULAR VOLUME 86.8 fL (80-94); MONOCYTES # (AUTO) 0.5 K/uL (0.8-1.0)
[2018-12-21 08:27] LABS: BASOPHILS % (AUTO) 0.2 % (0.0-2.0); HEMATOCRIT 31.6 % (36-52); HEMOGLOBIN 10.3 g/dL (12.0-18.0); LYMPHOCYTES # (AUTO) 1.4 K/uL (2.0-11.5); LYMPHOCYTES % (AUTO) 16.5 % (20.5-51.1); MEAN CORPUSCULAR HEMOGLOBIN 28 pg (27-31); MEAN CORPUSCULAR HGB CONC 33 g/dL (33-37); MONOCYTES % (AUTO) 6.2 % (1.7-9.3); NEUTROPHILS # (AUTO) 6.2 K/uL (1.8-7.7); NEUTROPHILS % (AUTO) 73.1 % (42.2-75.2); PLATELET COUNT (AUTO) 155 K/uL (140-450); RED BLOOD CELL COUNT(AUTO) 3.65 MIL/uL (4.20-6.10); RED CELL DISTRIBUTION WIDTH 15.4 % (11.6-13.7); WHITE BLOOD COUNT (AUTO) 8.5 K/uL (4.8-10.8)
--- NOTE | 2018-12-21 08:37 | NUR ---
found pt off bipap on room air o2 sat was 85% placed pt on 3lnc and o2 sat at 98% notified lianne lakhani and lianne lakhani took pt off bipap at 0800
[2018-12-21 08:50] LABS: CARBON DIOXIDE 33.3 mmol/L (21-32); CREATININE 0.5 mg/dL (0.7-1.3); POTASSIUM 3.3 mmol/L (3.5-5.1)
[2018-12-21] MEDS ORDERED: LACTULOSE 20 GM/30 ML UDC PO SCH (09:00)
[2018-12-21] MEDS: SHARK OIL/PHENYLEPHRINE 60 GM TUBE TP SCH (09:00)
[2018-12-21 09:10] LABS: MAGNESIUM 2.1 mg/dL (1.8-2.4); PHOSPHORUS 3.9 mg/dL (2.5-4.9)
[2018-12-21] MEDS: metFORMIN 500 MG TAB PO SCH (09:38)
[2018-12-21] MEDS: DONEPEZIL 10 MG TAB PO SCH (09:38)
[2018-12-21] MEDS: CARVEDILOL 3.125 MG TAB PO SCH (09:38)
[2018-12-21] MEDS: LACTOBACILLUS RHAMNOSUS GG 1 EACH CAP PO SCH (09:38)
[2018-12-21] MEDS: LISINOPRIL 5 MG TAB PO SCH (09:39)
[2018-12-21] MEDS: FAMOTIDINE 20 MG TAB PO SCH (09:39)
[2018-12-21] MEDS: risperiDONE 1 MG TAB PO SCH (09:39)
[2018-12-21] MEDS: FUROSEMIDE 20 MG TAB PO SCH (09:40)
[2018-12-21] MEDS: CALCITONIN (SALMON) 200 IU/ACTUATION SPR 3.7ML BTL NS SCH (09:41)
[2018-12-21] MEDS: TAMSULOSIN 0.4 MG CAP PO SCH (09:43)
--- NOTE | 2018-12-21 09:45 | NUR ---
ADMINISTERED SCHEDULED MEDICATIONS, PATIENT TOLERATED WELL. CLEANED AND REPOSITIONED PATIENT, PATIENT ATE BREAKFAST. IV ANTIBIOTIC RUNNING AT 100 ML/HR. NO DISTRESS NOTED ON 2L O2 VIA NC. BED LOW, CALL LIGHT IN REACH.
--- NOTE | 2018-12-21 10:35 | NUR ---
CLEANED AND REPOSITIONED PATIENT. BED LOW, NO DISTRESS ON 2L O2 NC. WILL CONTINUE TO MONITOR.
--- NOTE | 2018-12-21 11:45 | NUR ---
REPOSITIONED PATIENT FOR COMFORT. DOES NOT NEED TO BE CLEANED. WILL CONTINUE TO MONITOR. BED IS LOW.
[2018-12-21] MEDS: ALBUTEROL SULFATE/IPRATROPIU 3 ML SOL IH PRN (11:57)
[2018-12-21] MEDS: MORPHINE SULFATE 2 MG/ML SYR IVP PRN (12:47)
--- NOTE | 2018-12-21 12:50 | NUR ---
GAVE 2MG IV MORPHINE FOR 8 BACK PAIN. PATIENT TOLERATED WELL. RESPIRATIONS ARE EVEN AND UNLABORED AT 18/MIN. VITALS ARE STABLE. WILL CONTINUE TO MONITOR.
[2018-12-21] MEDS: guaiFENesin 20 MG/ML UDC PO PRN (13:07)
[2018-12-21] MEDS: INSULIN LISPRO SLIDING SCALE 100 UNITS/ML VIAL SUBQ PRN (13:10)
[2018-12-21] MEDS ORDERED: LEVO750T2 PO (13:24)
[2018-12-21] MEDS ORDERED: NITR100C7 PO (13:33)
--- NOTE | 2018-12-21 13:36 | NUR ---
SPOKE WITH HENRIK RN AT [facility] TO INFORM HER OF DISCHARGE TODAY, SHE WILL CHECK WITH HER SENIOR NURSE REGARDING HIS O2 FOR TRANSPORT, PT NEEDS 2L NC O2, PT USES O2 AT HOME, AWAITING CALL BACK FROM HENRIK.
[2018-12-21] MEDS ORDERED: LACT10CA PO (13:38)
--- NOTE | 2018-12-21 13:45 | NUR ---
PATIENT SLEEPING NO SIGNS OF DISTRESS ON 2L O2 NC. BED IS LOW, CALL LIGHT IN REACH.
[2018-12-21 14:58] VITALS: BP 139/55
--- NOTE | 2018-12-21 15:05 | NUR ---
CLEANED AND REPOSITIONED PATIENT, PATIENT SPO2 IS 95% ON RA. MAY NOT NEED O2 FOR TRANSFER. REMOVED 22 GAUGE CATHETER FROM LEFT AC, TIP INTACT. PATIENT TOLERATED WELL. DRESSED PATIENT IN HIS STREET CLOTHES. PATIENT BEING DISCHARGED BACK TO [facility] IN WHICH HE RESIDES.
--- NOTE | 2018-12-21 15:50 | NUR ---
PATIENT DISCHARGED TO [facility] IN [place]. GAVE REPORT TO FIORDALIZA AMOR WHO ARRIVED TO TRANSPORT PATIENT HOME. PATIENT TRANSFERRED TO WHEELCHAIR VIA LIFT, PATIENT TOLERATED WELL. IV WAS PREVIOUSLY REMOVED. WRIST BANDS WERE REMOVED. EDUCATED CAREGIVER REGARDING DISCHARGE MEDICATIONS, FOLLOW UP APPOINTMENT, OUTCOMES OF PROCEDURES PERFORMED AND SYMPTOMS FOR WHICH TO RETURN. PROVIDED WRITTEN DISCHARGE INFORMATION WELL. PATIENT HAS SELF CONTROLLED WHEEL CHAIR. PATIENT WAS ESCORTED OFF UNIT AND OUT OF HOSPITAL ACCOMPANIED BY FIORDALIZA FROM RESIDENTIAL FACILITY.
== END 2018-12-21 16:07 | disposition home or self-care (01) | DRG 604 ==
LOC: MED 19:13 → MTU 22:45
PROVIDERS: ADMIT General Practice; ATTEND General Practice
PROC: 0DJ08ZZ Inspection of Upper Intestinal Tract, Via Natural or Artificial Opening Endoscopic (ICD-10-PCS; principal; 2018-12-20 16:40)
PROC: 0DJD8ZZ Inspection of Lower Intestinal Tract, Via Natural or Artificial Opening Endoscopic (ICD-10-PCS; 2018-12-20 16:40)
PROC: 5A09357 Assistance with Respiratory Ventilation, Less than 24 Consecutive Hours, Continuous Positive Airway Pressure (ICD-10-PCS; 2018-12-21)
DX: S31.831A Laceration without foreign body of anus, initial encounter (principal); G82.50 Quadriplegia, unspecified; K72.90 Hepatic failure, unspecified without coma; K21.9 Gastro-esophageal reflux disease without esophagitis; N40.0 Benign prostatic hyperplasia without lower urinary tract symptoms; A08.4 Viral intestinal infection, unspecified; D64.9 Anemia, unspecified; G47.30 Sleep apnea, unspecified; I25.10 Atherosclerotic heart disease of native coronary artery without angina pectoris; J44.9 Chronic obstructive pulmonary disease, unspecified; K22.70 Barrett's esophagus without dysplasia; K44.9 Diaphragmatic hernia without obstruction or gangrene; J45.909 Unspecified asthma, uncomplicated; I50.9 Heart failure, unspecified; I11.0 Hypertensive heart disease with heart failure; E78.5 Hyperlipidemia, unspecified; Z96.649 Presence of unspecified artificial hip joint; E11.43 Type 2 diabetes mellitus with diabetic autonomic (poly)neuropathy; E78.1 Pure hyperglyceridemia; F03.90 Unspecified dementia, unspecified severity, without behavioral disturbance, psychotic disturbance, mood disturbance, and anxiety; N32.89 Other specified disorders of bladder; X58.XXXA Exposure to other specified factors, initial encounter; Y93.89 Activity, other specified; Y92.89 Other specified places as the place of occurrence of the external cause; Y99.8 Other external cause status; Z79.01 Long term (current) use of anticoagulants; Z87.81 Personal history of (healed) traumatic fracture
CPT/HCPCS: 36415; 71045; 74018; 80048; 80053; 80305; 81001; 82140; 82150; 82272; 82948; 83036; 83605; 83690; 83735; 83880; 84100; 84436; 84443; 84484; 85025; 85610; 85730; 86886; 86900; 86901; 87015; 87040; 87045; 87070; 87081; 87086; 89055; 92610; 93005; 94640; 94660; 99285; C9113; G0482; J0171; J0696; J1200; J1815; J2250; J2270; J2405; J2765; J3010; J3490; J7030; J7060; J7620; J7626; Q0092